=== PATIENT | female | born 1995 | race Caucasian/White ===

== ENCOUNTER 2018-04-16 13:19 | Emergency (ER) | payer SELFPAY ==
[~2018-04-16] VITALS: Ht 160 cm; Wt 62.0 kg
[2018-04-16 13:21] VITALS: BP 133/63
[2018-04-16] MEDS ORDERED: HYDROCORTISONE 1% OINT 28.35GM TOP SCH (15:30)
== END 2018-04-16 16:06 | disposition home or self-care (01) ==
LOC: ER 13:19
DX: R21 Rash and other nonspecific skin eruption (principal); F12.10 Cannabis abuse, uncomplicated; F17.200 Nicotine dependence, unspecified, uncomplicated; Z98.890 Other specified postprocedural states
CPT/HCPCS: 99282